=== PATIENT | female | born 1975 ===

== ENCOUNTER 2020-12-29 13:41 | Outpatient (CLI) | payer OTHER | END 2021-01-02 13:54 | disposition home or self-care (01) | LOC: RAD 13:41 | PROVIDERS: ATTEND Surgery | DX: K59.09 Other constipation (principal) ==

== ENCOUNTER 2021-02-21 07:27 | Outpatient (CLI) | payer OTHER | END 2021-02-21 08:00 | disposition home or self-care (01) | LOC: TOM 07:27 | DX: Z12.11 Encounter for screening for malignant neoplasm of colon (principal); R10.84 Generalized abdominal pain ==